=== PATIENT | male | born 1940 | race Caucasian/White ===

== ENCOUNTER → 2018-09-09 | Outpatient (CLI) | payer MEDICARE, BC ==
--- NOTE | 2018-09-09 14:57 | Diagnostic Imaging Report ---
Indication: Primary osteoarthritis of the right knee, pain COMPARISON: None available. Technique: 3 radiographs of the right knee dated September 09, 2018. Findings: No acute fracture or dislocation. No destructive osseous process. Minimal medial joint space narrowing. No significant osteophytosis. No joint effusion. Moderate vascular calcifications. No suspicious radiopaque foreign body. Impression: No acute osseous abnormality with very minimal degenerative changes for age. Moderate vascular calcifications. Dictated by: Dictated on workstation # [id number]
--- NOTE | 2018-09-09 15:00 | Diagnostic Imaging Report ---
Indication: Chronic right hip pain COMPARISON: None available. Technique: 2 radiographs of the right hip dated September 09, 2018. Findings: No acute fracture or dislocation. No destructive osseous process. The right sacroiliac joint is intact. Moderate degenerative changes of the right hip joint are noted with moderate joint space narrowing, particularly superiorly. Osteophyte formation is also present. No collapse of the right femoral head. Mild sclerosis of the articular surfaces. The pubic symphysis is intact. Scattered vascular calcifications. Impression: No acute osseous abnormality with moderate degenerative changes of the right hip. Dictated by: Dictated on workstation # [id number]
== END ==
LOC: RAD FS 14:12
PROVIDERS: ATTEND Family Medicine
DX: M16.11 Unilateral primary osteoarthritis, right hip (principal); M17.11 Unilateral primary osteoarthritis, right knee
CPT/HCPCS: 73502; 73562

== ENCOUNTER → 2019-11-18 | Outpatient (CLI) | payer MEDICARE, BC ==
--- NOTE | 2019-11-18 10:34 | Diagnostic Imaging Report ---
INDICATION: Right knee pain. Time of exam: 1002 AM 3 views of the right knee were obtained. Alignment is normal. Joint spaces are well maintained. Articular surfaces are smooth. No fracture, dislocation or effusion is detected. IMPRESSION: No acute abnormality is detected. Dictated by: Dictated on workstation # [id number]
--- NOTE | 2019-11-18 11:15 | Diagnostic Imaging Report ---
Indication: Chronic right hip pain. Time of exam 10:28 AM AP view of the pelvis and 2 views right hip were obtained. There are severe osteoarthritic changes of the right hip. Complete loss of the superior joint space is noted. There is sclerosis and subchondral cyst formation of the femoral head and acetabulum. Femoral head and neck are intact. No fractures are seen. Right-sided rami are intact. IMPRESSION: Severe osteoarthritic changes to the right hip. No acute bony abnormality is detected. Dictated by: Dictated on workstation # [id number]
== END ==
LOC: RAD FS 09:51
PROVIDERS: ATTEND Nurse Practitioner
DX: M16.11 Unilateral primary osteoarthritis, right hip (principal); M25.561 Pain in right knee
CPT/HCPCS: 73502; 73562